=== PATIENT | female | born 1995 | race Two or more races ===

== ENCOUNTER 2019-05-11 17:43 | Emergency (ER) | payer SELFPAY ==
[2019-05-11 18:31] LABS: APPEARANCE,URINE CLEAR; BILIRUBIN,URINE NEGATIVE (NEGATIVE); COLOR,URINE YELLOW; GLUCOSE, URINE NEGATIVE (NEGATIVE); KETONES,URINE NEGATIVE (NEGATIVE); LEUKOCYTE ESTERASE,URINE NEGATIVE (NEGATIVE); NITRITE,URINE NEGATIVE (NEGATIVE); PROTEIN,URINE NEGATIVE (NEGATIVE); URINE SPECIFIC GRAVITY 1.027; UROBILINOGEN,URINE NEGATIVE mg/dL (<2.0)
[2019-05-11] MEDS ORDERED: ACETAMINOPHEN 325 MG TABLET PO ONE (19:26)
[2019-05-11] MEDS ORDERED: IBUPROFEN 600 MG TABLET PO ONE (19:26)
--- NOTE | 2019-05-11 19:29 | ER Document Report ---
ED Medical Screen (RME) - General Chief Complaint: Headache Stated Complaint: BODY PAIN Time Seen by Provider: 05/11/19 19:16 Notes: Patient is a 24-year-old Danish-speaking female who presents to the emergency department with a fever, body aches, and chills. Darrell was used with paintless dent repair technician #[id number]. Patient states that she started to have body aches and chills last night she also mentioned that she was playing with her son yesterday and he hit her left breast. The patient is also breast-feeding. She states that when she feeds the baby it stings. Exam: Tender left lateral breast. JOSH Johnston was at bedside for exam. I have greeted and performed a rapid initial assessment of this patient. A comprehensive ED assessment and evaluation of the patient, analysis of test results and completion of medical decision making process will be conducted by an additional ED providers. TRAVEL OUTSIDE OF THE [place] IN LAST 30 DAYS: No Physical Exam - Vital signs Vitals: Temp Pulse Resp BP Pulse Ox 99.8 F 114 H 18 123/64 98 05/11/19 18:09 05/11/19 18:09 05/11/19 18:09 05/11/19 18:09 05/11/19 18:09 Course - Vital Signs Vital signs: Temp Pulse Resp BP Pulse Ox 99.8 F 114 H 18 123/64 98 05/11/19 18:09 05/11/19 18:09 05/11/19 18:09 05/11/19 18:09 05/11/19 18:09 - Laboratory Laboratory results interpreted by me: 05/11/19 18:15 Urine Blood SMALL H
[2019-05-11 20:00] LABS: ABSOLUTE BASOPHILS # (AUTO) 0.1 10^3/uL (0.0-0.2); ABSOLUTE EOSINOPHILS # (AUTO) 0.2 10^3/uL (0.0-0.6); ABSOLUTE LYMPHOCYTES (AUTO) 2.6 10^3/uL (0.5-4.7); ABSOLUTE MONOCYTES (AUTO) 0.5 10^3/uL (0.1-1.4); ABSOLUTE NEUT (AUTO) 11.2 10^3/uL (1.7-8.2); BASOPHILS % (AUTO) 0.7 % (0-2); EOSINOPHILS % (AUTO) 1.3 % (0-6); HEMATOCRIT 42.1 % (36.0-47.0); HEMOGLOBIN 14.4 g/dL (12.0-15.5); LYMPHOCYTES % (AUTO) 17.8 % (13-45); MEAN CORPUSCULAR HGB CONC 34.2 g/dL (32.0-36.0); MEAN CORPUSCULAR VOLUME 91 fl (80-97); MONOCYTES % (AUTO) 3.5 % (3-13); PLATELET COUNT 372 10^3/uL (150-450); RED BLOOD COUNT 4.64 10^6/uL (3.72-5.28); RED CELL DISTRIBUTION WIDTH 13.2 % (11.5-14.0); SEGMENTED NEUTROPHILS % (AUTO) 76.7 % (42-78); TOTAL CELLS COUNTED % (AUTO) 100 %; WHITE BLOOD COUNT 14.6 10^3/uL (4.0-10.5)
[2019-05-11 20:17] LABS: ALBUMIN 4.9 g/dL (3.5-5.0); ALKALINE PHOSPHATASE 101 U/L (38-126); ANION GAP 12 (5-19); ASPARTATE AMINO TRANSFERASE 33 U/L (14-36); BILIRUBIN,DIRECT 0.2 mg/dL (0.0-0.4); BILIRUBIN,TOTAL 0.4 mg/dL (0.2-1.3); BLOOD UREA NITROGEN 14 mg/dL (7-20); CALCIUM 9.2 mg/dL (8.4-10.2); CARBON DIOXIDE 21 mmol/L (22-30); CHLORIDE 106 mmol/L (98-107); GLUCOSE 92 mg/dL (75-110); POTASSIUM 4.1 mmol/L (3.6-5.0); TOTAL PROTEIN 8.1 g/dL (6.3-8.2)
--- NOTE | 2019-05-11 23:40 | ER Document Report ---
ED General - General Chief Complaint: Headache Stated Complaint: BODY PAIN Time Seen by Provider: 05/11/19 19:16 Primary Care Provider: JOO NICHOLS MD [ACTIVE STAFF] - Follow up in 3-5 days Notes: This is a 24-year-old female patient to the emergency department chief complaint of left breast pain. Patient states that over the last couple of days her breast has been hurting on the left and she has been having some chills. She is breast-feeding. She thought that may be she injured her breast because her 9-month-old hit her accidentally pretty hard in the left breast but it has continued to hurt. She denies any other symptoms at this time. She is was given some ibuprofen and Tylenol at triage as she states that she feels much better at this time and would like to go home. Patient is Nigerian-speaking only female and conversations had through the use of the bomb technician. TRAVEL OUTSIDE OF THE [place] IN LAST 30 DAYS: No - HPI Quality of pain: Throbbing Severity: Moderate Pain Level: 3 Associated symptoms: Chills, Fever - Related Data Allergies/Adverse Reactions: No Known Allergies Allergy (Unverified 05/11/19 23:16) Past Medical History - General Information source: Patient - Social History Smoking Status: Never Smoker Chew tobacco use (# tins/day): No Frequency of alcohol use: None Drug Abuse: None Lives with: Spouse/Significant other Family History: Reviewed & Not Pertinent Patient has suicidal ideation: No Patient has homicidal ideation: No - Medical History Medical History: Negative Renal/ Medical History: Denies: Hx Peritoneal Dialysis Review of Systems - Review of Systems Notes: Constitutional: denies: Chills, Diaphoresis, +Fever, -Malaise, -Weakness EENT: denies: Eye discharge, Blurred vision, Tearing, Double vision, Nose congestion, Nose discharge, Throat swelling, Mouth pain Cardiovascular: denies: Palpitations, Heart racing, Orthopnea, Dyspnea, Chest pain Respiratory: denies: Cough, Hurts to breathe, Wheezing, Shortness of breath Gastrointestinal: denies: Abdominal pain, Diarrhea, Nausea, Vomiting, Black stools, bright red blood in stool Genitourinary: denies: Burning, Dysuria, Discharge, Frequency, Flank pain, Hematuria Musculoskeletal: denies: Joint pain, Joint swelling, Muscle pain, Muscle stiffness, back pain Hematologic/Lymphatic: denies: Anemia, Easy bleeding, Easy bruising, Blood clots Neurological/Psychological: denies: Confusion, Dementia, Depression, Loss of consciousness Skin: No lesions, no masses, no skin breakdown, no abscesses, +tenderness in the left breast and pain with breast-feeding. Physical Exam - Vital signs Vitals: Temp Pulse Resp BP Pulse Ox 99.8 F 114 H 18 123/64 98 05/11/19 18:09 05/11/19 18:09 05/11/19 18:09 05/11/19 18:09 05/11/19 18:09 Interpretation: Normal - General General appearance: Appears well, Alert - HEENT Head: Normocephalic, Atraumatic Eyes: Normal Pupils: PERRL - Respiratory Respiratory status: No respiratory distress Chest status: Nontender Breath sounds: Normal Chest palpation: Normal - Cardiovascular Rhythm: Regular Heart sounds: Normal auscultation Murmur: No - Abdominal Inspection: Normal Distension: No distension Bowel sounds: Normal Tenderness: Nontender Organomegaly: No organomegaly - Back Back: Normal, Nontender - Extremities General upper extremity: Normal inspection, Nontender, Normal color, Normal ROM, Normal temperature General lower extremity: Normal inspection, Nontender, Normal color, Normal ROM, Normal temperature, Normal weight bearing. No: Chika's sign - Neurological Neuro grossly intact: Yes Cognition: Normal Orientation: AAOx4 Ernestina Coma Scale Eye Opening: Spontaneous Ernestina Coma Scale Verbal: Oriented Ernestina Coma Scale Motor: Obeys Commands Ernestina Coma Scale Total: 15 Speech: Normal Motor strength normal: LUE, RUE, LLE, RLE Sensory: Normal - Psychological Associated symptoms: Normal affect, Normal mood - Skin Skin Temperature: Warm Skin Moisture: Dry Skin Color: Normal, Other - Breast exam: There is no significant asymmetry of the breast. There is tenderness to palpation at the 5 o'clock position of the left breast. The left breast does not demonstrate any lymphangitic streaking. There is no nipple discharge. There is no axillary lymphadenopathy. Course - Re-evaluation Re-evalutation: 05/11/19 23:39 Laboratory 05/11/19 05/11/19 05/11/19 18:15 19:46 19:46 WBC 14.6 H RBC 4.64 Hgb 14.4 Hct 42.1 MCV 91 MCH 31.0 MCHC 34.2 RDW 13.2 Plt Count 372 Seg Neutrophils % 76.7 Lymphocytes % 17.8 Monocytes % 3.5 Eosinophils % 1.3 Basophils % 0.7 Absolute Neutrophils 11.2 H Absolute Lymphocytes 2.6 Absolute Monocytes 0.5 Absolute Eosinophils 0.2 Absolute Basophils 0.1 Sodium 138.8 Potassium 4.1 Chloride 106 Carbon Dioxide 21 L Anion Gap 12 BUN 14 Creatinine 0.66 Est GFR ( Amer) > 60 Est GFR (Non-Af Amer) > 60 Glucose 92 Calcium 9.2 Total Bilirubin 0.4 Direct Bilirubin 0.2 Neonat Total Bilirubin Not Reportable Neonat Direct Bilirubin Not Reportable Neonat Indirect Bili Not Reportable AST 33 ALT 45 Alkaline Phosphatase 101 Total Protein 8.1 Albumin 4.9 Urine Color YELLOW Urine Appearance CLEAR Urine pH 6.0 Ur Specific [place] 1.027 Urine Protein NEGATIVE Urine Glucose (UA) NEGATIVE Urine Ketones NEGATIVE Urine Blood SMALL H Urine Nitrite NEGATIVE Urine Bilirubin NEGATIVE Urine Urobilinogen NEGATIVE Ur Leukocyte Esterase NEGATIVE Urine WBC (Auto) 1 Urine RBC (Auto) 3 Squamous Epi Cells Auto <1 Urine Mucus (Auto) FEW Urine Ascorbic Acid NEGATIVE Urine HCG, Qual NEGATIVE 05/11/19 23:40 This is a pleasant 24-year-old female who is describing symptoms consistent with mastitis. She has reported fever at home with tenderness on the left breast. Worse with breast-feeding. Her white blood cell count is slightly elevated. I am going to start her on some anti-inflammatories and antibiotics. This was all discussed through card assembler. Breast exam performed in the presence of Augustus Luna RN 05/11/19 23:41 05/11/19 23:46 Although the printed discharge instructions do not inform her of such I did do verbal discharge instructions with the card assembler describing that she needed close follow-up with the [facility] or her primary care doctor of choice and if the symptoms are getting worse in the next 24 to 48 hours she should return. P atient verbalized understanding of these instructions prior to discharge. - Vital Signs Vital signs: Temp Pulse Resp BP Pulse Ox 97.6 F 94 15 117/58 L 99 05/11/19 23:58 05/11/19 23:58 05/11/19 23:02 05/11/19 23:58 05/11/19 23:58 - Laboratory Result Diagrams: 05/11/19 19:46 05/11/19 19:46 Laboratory results interpreted by me: 05/11/19 05/11/19 05/11/19 18:15 19:46 19:46 WBC 14.6 H Absolute Neutrophils 11.2 H Carbon Dioxide 21 L Urine Blood SMALL H Discharge - Discharge Clinical Impression: Mastitis Condition: Good Disposition: HOME, SELF-CARE Instructions: Mastitis ([facility]) Prescriptions: Cephalexin Monohydrate [Keflex 500 mg Capsule] 500 mg PO QID 10 Days #40 capsule Ibuprofen [Motrin 800 mg Tablet] 800 mg PO Q8H 5 Days #15 tab Referrals: JOO NICHOLS MD [ACTIVE STAFF] - Follow up in 3-5 days Print Language: Nigerian
[2019-05-11] MEDS ORDERED: IBUPROFEN 400 MG TABLET PO ONE (23:41)
[2019-05-11] MEDS ORDERED: CEPHALEXIN 500 MG CAPSULE PO ONE (23:41)
[2019-05-11 23:59] VITALS: BP 117/58
== END 2019-05-12 00:01 | disposition home or self-care (01) ==
LOC: ER 17:43
DX: N61.0 Mastitis without abscess (principal); N64.4 Mastodynia; R50.9 Fever, unspecified; D72.829 Elevated white blood cell count, unspecified
CPT/HCPCS: 36415; 85025; 81025; 80053; 81001; J3490; 99283